=== PATIENT | female | born 1985 | race Native Hawaiian/Other Pacific Islander ===

== ENCOUNTER 2018-04-23 07:12 | Inpatient (IN) | payer OTHER ==
[2018-04-23] VITALS (22 sets, daily range): BP systolic 100–141; BP diastolic 55–88
[~2018-04-23] VITALS: Ht 154.9 cm; Wt 63.1 kg
[2018-04-23] MEDS ORDERED: PRENTAB9 PO (08:47)
[2018-04-23] MEDS ORDERED: B6 N1TAB PO (08:47)
[2018-04-23] MEDS ORDERED: UNIS25TA3 PO (08:47)
[2018-04-23 10:04] LABS: HEMATOCRIT 34.1 % (36.0-47.0); HEMOGLOBIN 11.8 g/dl (12.0-15.5); MEAN CORPUSCULAR HEMOGLOBIN 32.5 pg (27.0-33.0); MEAN CORPUSCULAR HGB CONC 34.6 g/dl (32.0-36.5); MEAN CORPUSCULAR VOLUME 93.9 fl (80.0-96.0); PLATELET COUNT, AUTOMATED 168 10^3/uL (150-450); RED BLOOD COUNT 3.63 10^6/uL (4.00-5.40); WHITE BLOOD COUNT 6.4 10^3/uL (4.0-10.0)
[2018-04-23] MEDS ORDERED: miSOPROStol 25 MCG 1/4 TAB (S0191) As Ordered ONE (10:11)
[2018-04-23] MEDS ORDERED: miSOPROStol 25 MCG 1/4 TAB (S0191) PV ONE (10:15)
[2018-04-23] MEDS ORDERED: BUTORPHANOL 2 MG/ML INJ (J0595) IV PRN (10:15)
--- NOTE | 2018-04-23 10:24 | HPEPDOC ---
Obstetrical History & Physical General Date of Admission Apr 23, 2018 at 07:12 History of Present Illness Abena is a 32yo with SIUP at 41w1d by lmp c/w 13wk u/s presenting today f or scheduled IOL for LTG. Occasional ctx. No LOF. No vaginal bleeding. Good movement. No f/c/n/v. Chief Complaint: Induction of labor Care Care: Good Care Dating Final EDC: Apr 15, 2018 Final EDC by: LMP, 1st trimester (US) Antepartum Course Diagnos(e)s Elevated risk for down syndrome on quad screen but normal [id number] and ultrasound. Elevated 1hr glucola with normal 3hr GTT. 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 Past Medical History Medical History Benign PMhx Surgical History: Dilatation and Curettage Family History Significant Family History: No pertinent family hx Social History Marital Status: Family situation: Spouse/partner home Psychosocial History: No pertinent psych hx * Smoker: non-smoker Alcohol: Denies Drugs: denies Imunizations Tdap status: current Influenza Status: current Allergies Coded Allergies: No Known Allergies (Unverified , 04/23/18) Medications Scheduled Multivitamins/ ( 27-0.8 mg) 1 Tab Tab, 1 TAB PO DAILY Scheduled PRN (Unisom) 25 Mg Tab, 1 TAB PO QPM PRN for INSOMNIA Miscellaneous Medications Pyridoxine HCl (B6 Natural) 100 Mg Tab, 100 MG PO Physical Examination Physical Examination GENERAL: Alert and oriented times three. ABDOMEN: Gravid and non-tender to touch. FETUS: Is vertex (VTX) by sterile vaginal examination (SVE) EXTREMITIES: No edema BLE Vital Signs/I&O Vital Signs Date Time Temp Pulse Resp B/P (MAP) Pulse Ox O2 Delivery O2 Flow Rate FiO2 04/23/18 07:41 98.0 74 16 121/71 (88) Laboratory Data 24H LABS Laboratory Tests 2 04/23/18 07:33: Serology Scanned Report Hepatitis B Testing 04/23/18 09:45: CBC/BMP Pertinent Laboratoy Data Blood Type: B+ RBC Antibody Screen: Negative HIV: Negative Hepatitis B: Negative Hepatitis C: Unknown Rapid Plasma Reagin: Nonreactive Rubella: Immune Varicella: Immune Chlamydia/Gonorrhea: Negative Group B Streptococcus: Negative Quad Screen Test: Positive (but negative [id number]) Glucose Tolerance Test: 149 (73/168/125/98) Anatomy Ultrasound Ultrasound Date: Nov 28, 2017 Placenta Location: Anterior Normal Anatomy: Yes Placenta Previa: No Steroid Therapy Steroid Therapy: No Vaginal Examination Dilation: 1cm Effacement: 70% Station: -2 Cervical Consistency: Soft Cervical Position: Anterior Presentation: Cephalic presentation Assessment Heart Rate (FHR): 150 Variability: Moderate Accelerations: Positive Decelerations: None Tocometer Contractions: Yes Frequency: irregular Strength: palpated as mild Assessment/Plan Assessment Abena is a 32yo with SIUP at 41w1d by lmp c/w 13wk u/s presenting today for scheduled IOL for LTG. GBS negative. Vitals wnl, benign exam. Cat I FHRT, irreg mild ctx. Cephalic by SCE. Lobo cervical balloon placed with 40cc NS, uncomplicated. Also 25mcg cytotec placed vaginally. course significant for elevated risk for down syndrome on quad screen but normal [id number] and ultrasound. Elevated 1hr glucola with normal 3hr GTT. Plan Admit and orient. 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 Diet: clear liquids Group B Streptococcus (GBS) negative Labs and intravenous (IV) per unit protocol. Counseled on lobo bulb, cytotec, pitocin, AROM and induction of labor (IOL). Lactated Ringers (LR): Bolus 1000 mL, then at 125 mL/hr. Anticipate normal spontaneous delivery () stadol 2mg IV q4hr prn pain until active labor Candidate for epidural in active labor if desired MD Fab Pillai Katrina D MD Apr 23, 2018 10:03
[2018-04-23] MEDS: miSOPROStol 50 MCG 1/2 TAB (S0191) PO SCH ×3 (15:03→22:15)
--- NOTE | 2018-04-23 19:28 | IPNPDOC ---
Text Note Date of Service The patient was seen on 04/23/18. NOTE Intrapartum Note Pt doing well, only feels mild cramping. Reveles bulb fell out around 1500, she received one dose of PV cytotec followed by a single PO dose of cytotec around 1530. Vitals wnl, afebrile Cat I FHRT, +accels, -decels, mod brandon [place]: ctx q2min SCE: /-2, AROM performed with clear fluid noted, well tolerated Will plan to begin pitocin now She would like an epidural later when she is more uncomfortable Will continue to closely observe Safe to proceed Dr. Betsy Sanon MD VS,Luis Fernando, I+O VS, Luis Fernando, I+O Laboratory Tests 04/23/18 09:45 Red Blood Count 3.63 L, Mean Corpuscular Volume 93.9, Mean Corpuscular Hemoglobin 32.5, Mean Corpuscular Hemoglobin Concent 34.6, Red Cell Distribution Width 12.2 Vital Signs Date Time Temp Pulse Resp B/P (MAP) Pulse Ox O2 Delivery O2 Flow Rate FiO2 04/23/18 17:35 97.8 80 16 118/71 (87) Betsy Sanon MD Apr 23, 2018 19:28
[2018-04-23] MEDS ORDERED: OXYTOCIN DRIP 30 UNITS in APPROPRIATE DILUENT 1 EA IV SCH (19:30)
[2018-04-23] MEDS ORDERED: OXYTOCIN 30 UNITS IN 0.9% NaCl 500ML IV BAG (J2590) As Ordered ONE (19:40)
[2018-04-23] MEDS ORDERED: FENTANYL 2MCG/ML ROPIVACAINE 0.2% IN 0.9% NACL 100ML IVBAG As Ordered ONE (21:35)
[2018-04-23] MEDS ORDERED: ePHEDrine SULFATE 25 MG/5 ML(5MG/ML) SYRINGE IV PRN (22:00)
[2018-04-23] MEDS ORDERED: LACTATED RINGER'S 1000 ML IV PRN (22:00)
[2018-04-23] MEDS ORDERED: EPIDURAL COMMENT XX SCH (22:00)
[2018-04-23] MEDS ORDERED: diphenhydrAMINE INJ 50MG/ML VIAL (J1200) IV PRN (22:00)
[2018-04-23] MEDS: FENTANYL/ROPIVACAINE/NACL BAG 100 ML EPIDURAL SCH (22:00)
[2018-04-23] MEDS ORDERED: ONDANSETRON 4MG/2ML VIAL (J2405) IV PRN (22:00)
[2018-04-23] MEDS ORDERED: EPIDURAL/PCA KEYS XX PRN (22:00)
[2018-04-23] MEDS ORDERED: NALOXONE INJ 0.4 MG/1 ML VIAL (J2310) IV PRN (22:00)
[2018-04-23] MEDS ORDERED: REFRIGERATOR IV KEYS XX PRN (22:00)
--- NOTE | 2018-04-23 23:46 | IPNPDOC ---
Text Note Date of Service The patient was seen on 04/23/18. NOTE Intrapartum Note Patient is doing well, comfortable with epidural. Pitocin at 2mu. Vitals wnl, afebrile Cat I FHRT [place]: ctx q3-5min SCE: /-2, clear fluid Will continue to titrate up on pitocin to get patient into active labor Will continue to closely monitor Safe to proceed Dr. Betsy Sanon MD VS,Luis Fernando, I+O VS, Luis Fernando, I+O Laboratory Tests 04/23/18 09:45 Red Blood Count 3.63 L, Mean Corpuscular Volume 93.9, Mean Corpuscular Hemoglobin 32.5, Mean Corpuscular Hemoglobin Concent 34.6, Red Cell Distribution Width 12.2 Vital Signs Date Time Temp Pulse Resp B/P (MAP) Pulse Ox O2 Delivery O2 Flow Rate FiO2 04/23/18 21:15 64 16 134/70 (91) 04/23/18 19:15 98.3 Betsy Sanon MD Apr 23, 2018 23:46
[2018-04-24] VITALS (27 sets, daily range): BP systolic 98–132; BP diastolic 50–69
[2018-04-24] MEDS: miSOPROStol 50 MCG 1/2 TAB (S0191) PO SCH ×2 (02:15→06:15)
[2018-04-24] MEDS ORDERED: LR 1,000 ML IV SCH ×2 (07:15→12:30)
--- NOTE | 2018-04-24 08:05 | IPNPDOC ---
Text Note Date of Service The patient was seen on 04/24/18. NOTE Intrapartum Note Patient not yet feeling constant strong urge to push, epidural working well. I was called by RN at 0600 with SCE of C/C/0 and plan was to labor down for an isabel r. Vitals wnl, afebrile Cat I FHRT with mod brandon, +accels, some early decels occasionally [place]: ctx q2-3min Discussed with Dr. Thomas at change of shift plan to begin pushing. He is currently in the OR and will be done with his first case soon, RN instructed to wait to start pushing until Dr. Thomas is available soon. Safe to proceed Dr. Betsy Sanon MD VS,Luis Fernando, I+O VS, Luis Fernando, I+O Laboratory Tests 04/23/18 09:45 Red Blood Count 3.63 L, Mean Corpuscular Volume 93.9, Mean Corpuscular Hemoglobin 32.5, Mean Corpuscular Hemoglobin Concent 34.6, Red Cell Distribution Width 12.2 Vital Signs Date Time Temp Pulse Resp B/P (MAP) Pulse Ox O2 Delivery O2 Flow Rate FiO2 04/24/18 04:58 82 16 100/56 (71) 04/23/18 22:30 98.0 I&O- Last 24 Hours up to 6 AM 04/24/18 05:59 Output Total 450 ml Balance -450 ml Betsy Sanon MD Apr 24, 2018 08:04
[2018-04-24] MEDS: FENTANYL/ROPIVACAINE/NACL BAG 100 ML EPIDURAL SCH (08:20)
--- NOTE | 2018-04-24 09:28 | NUR ---
0830 am reviewed progress adequate contractions category 1 strip ,pelvic exam swollen vulva, station -3 ot moulded not well applied now 3 hours fully and pushing 2 hours if not significant change primary cs indicated REVIEWED PLAN OF CARE WITH AND
[2018-04-24] MEDS ORDERED: AZITHROMYCIN INJ 500MG VIAL (J0456) As Ordered ONE (10:21)
[2018-04-24] MEDS ORDERED: ceFAZolin 2 GM/D5W 50 ML IV BAG (J0690 PER 500MG) As Ordered ONE (10:21)
--- NOTE | 2018-04-24 10:33 | NUR ---
reviewed progress no change with adequate pushing and 12 munits Pitocin now tachycardia 170 bpm reviewed risk benefit cs include bleeding infection uterine atony with remote hysterectomy,remote blood transfusion remote nicu admission for baby remote laceration to vital organs or fetus expressed understanding signed consent neonatology notified
[2018-04-24] MEDS ORDERED: BICITRA 30ML SOLN UDC PO ONE (11:00)
[2018-04-24] MEDS ORDERED: ACETAMINOPHEN 650 MG SUPP PR ONE (11:00)
[2018-04-24] MEDS ORDERED: BUPIVACAINE HCL 0.25% 10 ML VIAL SC ONE (11:00)
[2018-04-24] MEDS ORDERED: KETOROLAC 60 MG/2 ML VIAL (J1885) As Ordered ONE (11:19)
[2018-04-24] MEDS ORDERED: PHENYLephrine HCL 500 MCG/5 ML (100MCG/ML) SYRINGE (J2370) As Ordered ONE (11:19)
[2018-04-24] MEDS ORDERED: MORPHINE PRES-FREE INJ 10 MG/10 ML VIAL (J2274) As Ordered ONE (11:19)
[2018-04-24] MEDS ORDERED: ONDANSETRON 4MG/2ML VIAL (J2405) As Ordered ONE (11:19)
[2018-04-24] MEDS ORDERED: dexameTHASONE 4 MG/ML 1ML VIAL (J1100) As Ordered ONE ×2 (11:19→11:21)
[2018-04-24] MEDS ORDERED: MEPERIDINE 50 MG/ML 1ML VIAL (J2175) As Ordered ONE (11:19)
[2018-04-24] MEDS ORDERED: OXYTOCIN INJ 10 UNITS/ML VIAL (J2590) As Ordered ONE ×2 (11:19→11:32)
[2018-04-24] MEDS ORDERED: METOCLOPRAMIDE INJ 10MG/2ML VIAL (J2765) As Ordered ONE (11:21)
[2018-04-24] MEDS ORDERED: AZITHROMYCIN INJ 500 MG, VIAL MATE ADAPTER 1 EACH in D5W 250 ML IV ONE (11:45)
[2018-04-24] MEDS ORDERED: ONDANSETRON 4MG/2ML VIAL (J2405) IV PRN (11:50)
[2018-04-24] MEDS ORDERED: NALBUPHINE HCL 10 MG/ML AMP (J2300) IV PRN ×2 (11:50→12:30)
[2018-04-24] MEDS ORDERED: METOCLOPRAMIDE INJ 10MG/2ML VIAL (J2765) IV PRN (11:50)
[2018-04-24] MEDS ORDERED: NALOXONE INJ 0.4 MG/1 ML VIAL (J2310) IV PRN ×2 (11:50)
[2018-04-24] MEDS ORDERED: diphenhydrAMINE INJ 50MG/ML VIAL (J1200) IV PRN (11:50)
[2018-04-24 12:04] LABS: CORD GAS HCO3 V 21.9 MEQ/L; CORD GAS PCO2 V 43.1 mmHg; CORD GAS PH V 7.324 UNITS; CORD GAS PO2 V 25.9 mmHg; CORD GAS SBC V 20.4 MEQ/L; CORD GAS TCO2 V 23.2 MEQ/L
[2018-04-24] MEDS ORDERED: OXYTOCIN 30 UNITS IN 0.9% NaCl 500ML IV BAG (J2590) As Ordered ONE (12:30)
[2018-04-24] MEDS ORDERED: fentaNYL 100 MCG/2 ML INJECTION (J3010) IV PRN (12:30)
[2018-04-24] MEDS ORDERED: OXYTOCIN DRIP 30 UNITS in APPROPRIATE DILUENT 1 EA IV SCH ×2 (13:00→13:05)
[2018-04-24] MEDS ORDERED: MEASLES,MUMPS,RUBELLA VACCINE INJ (MMR-II) (90707) SC SCH (13:00)
[2018-04-24] MEDS ORDERED: DOCUSATE SODIUM 100 MG CAP PO PRN (13:00)
[2018-04-24] MEDS ORDERED: MOM 30ML SUSPENSION UDC PO PRN (13:00)
[2018-04-24] MEDS ORDERED: OXYTOCIN INJ 10 UNITS/ML VIAL (J2590) IV ONE ×2 (13:00→13:45)
[2018-04-24] MEDS ORDERED: RHOGAM 300 MCG (1500 IU) INJ (J2790) IM SCH (13:00)
[2018-04-24] MEDS ORDERED: ANUSOL HC CREAM 30GM TOP PRN (13:00)
[2018-04-24] MEDS: KETOROLAC 30 MG/ML VIAL (J1885) IV SCH ×2 (17:57→23:43)
--- NOTE | 2018-04-24 20:24 | IPN ---
DATE: 04/24/2018 This patient and requested circumcision of their male , after discussing risks and benefits of the circumcision, medical and nonmedical indications, penile block and aftercare, expressed understanding of penile block, aftercare and bleeding, signed the consent form, 20 minutes, all questions were answered. We await the clearance by the passport application examiner.
[2018-04-24] MEDS ORDERED: NS 800 ML IV ONE (23:15)
[2018-04-24] MEDS: NS 1,000 ML IV SCH (23:44)
[2018-04-25 02:31] VITALS: BP 95/54
[2018-04-25] MEDS: KETOROLAC 30 MG/ML VIAL (J1885) IV SCH (05:57)
[2018-04-25 06:17] VITALS: BP 94/57
[2018-04-25] MEDS: PERCOCET 5MG/325MG TAB PO PRN ×3 (06:56→22:11)
[2018-04-25] MEDS: NS 1,000 ML IV SCH (07:15)
[2018-04-25] MEDS: PRENATAL VITAMINS CHEWABLE TABLET PO SCH (08:00)
[2018-04-25 08:01] LABS: HEMATOCRIT 21.6 % (36.0-47.0); MEAN CORPUSCULAR HEMOGLOBIN 32.9 pg (27.0-33.0); MEAN CORPUSCULAR HGB CONC 33.8 g/dl (32.0-36.5); MEAN CORPUSCULAR VOLUME 97.3 fl (80.0-96.0); PLATELET COUNT, AUTOMATED 127 10^3/uL (150-450); RED BLOOD COUNT 2.22 10^6/uL (4.00-5.40); WHITE BLOOD COUNT 15.1 10^3/uL (4.0-10.0)
[2018-04-25 08:04] LABS: HEMOGLOBIN 7.3 g/dl (12.0-15.5)
--- NOTE | 2018-04-25 08:32 | IPNPDOC ---
Progress Note Date of Service: Apr 25, 2018 Progress Note SUBJECT: P1 s/p LTCS for arrest of descent at 41 2/7 weeks. , POD#1. She has been ambulating, catheter is in place. Had some decreased UOP but picked up with NS. Tolerating regular diet. Breast feeding without issue. Reports lochia is [like a normal period]. Patient is ambulating well. [Reports some cramping with . Denies any pain. Voiding and stooling without difficulty]. OBJECTIVE: VITAL SIGNS: Within normal limits, afebrile. Alert and oriented times three. Breath sounds without wheeze or stridor. Heart rate: Regular rate and rhythm. Abdomen: Fundus firm at U-2. Soft, appropriately tender. ASSESSMENT: POD#1 s/p LTCS for arrest of descent, well. Vitals within normal limits, afebrile, hemodynamically stable with no evidence of infection. PLAN: 1. Motrin/Percocet for pain. 2. Encourage breast feeding and ambulation. 3. d/c Reveles, heplock IVF. 4. Routine postop care. VS, I&O, 24H, Fishbone Vital Signs/I&O Vital Signs Date Time Temp Pulse Resp B/P (MAP) Pulse Ox O2 Delivery O2 Flow Rate FiO2 04/25/18 07:40 16 04/25/18 06:17 97.4 90 94/57 (69) 97 I&O- Last 24 Hours up to 6 AM 04/25/18 06:00 Intake Total 517 ml Output Total 1515 ml Balance -998 ml Laboratory Data 24H LABS Laboratory Tests 2 04/24/18 11:55: Cord Arterial Blood pH , Cord Arterial Blood PCO2 , Cord Arterial Blood PO2 , Cord Arterial Blood HCO3 , Cord Arterial Blood Total CO2 , Cord Arterial Blood Base Excess , Cord Arterial Base Excess (Standard , Cord Arterial Bld Oxygen Saturation 04/24/18 11:56: Cord Venous Blood pH 7.324, Cord Venous Blood PCO2 43.1, Cord Venous Blood PO2 25.9, Cord Venous Blood HCO3 21.9, Cord Venous Blood Total CO2 23.2, Cord Venous Base Excess (Actual) -4.0, Cord Venous Base Excess (Standard) 20.4, Cord Venous Blood Oxygen Saturation 61.0 04/25/18 07:36: Nucleated Red Blood Cells % (auto) 0.0 CBC/BMP Laboratory Tests 04/25/18 07:36 Red Blood Count 2.22 L, Mean Corpuscular Volume 97.3 H, Mean Corpuscular Hemoglobin 32.9, Mean Corpuscular Hemoglobin Concent 33.8, Red Cell Distribution Width 12.3 DINO MINER MD Apr 25, 2018 08:32
[2018-04-25 11:01] VITALS: BP 99/57
[2018-04-25] MEDS: IBUPROFEN 800 MG TAB PO SCH ×2 (14:08→22:12)
[2018-04-25 14:52] VITALS: BP 101/58
[2018-04-25 18:10] VITALS: BP 121/58
[2018-04-26 02:30] VITALS: BP 117/63
[2018-04-26 05:51] VITALS: BP 102/59
[2018-04-26] MEDS: IBUPROFEN 800 MG TAB PO SCH ×3 (06:10→22:44)
[2018-04-26] MEDS: PERCOCET 5MG/325MG TAB PO PRN ×3 (07:46→20:05)
[2018-04-26] MEDS: PRENATAL VITAMINS CHEWABLE TABLET PO SCH (07:46)
[2018-04-26 08:00] VITALS: BP 118/64
[2018-04-26] MEDS: IRON POLYSAC (NIFEREX) 150 MG CAP PO SCH (09:00)
--- NOTE | 2018-04-26 09:06 | IPNPDOC ---
Progress Note Date of Service: Apr 26, 2018 Progress Note SUBJECT: P1 s/p LTCS for arrest of descent at 41 2/7 weeks. , POD#2. She has been ambulating, catheter is in place. Tolerating regular diet. Breast feeding and pumping without issue. Reports lochia is [like a normal period]. Patient is ambulating well. [Reports some cramping with . Denies any pain. Voiding without difficulty]. OBJECTIVE: VITAL SIGNS: Within normal limits, afebrile. Alert and oriented times three. Breath sounds without wheeze or stridor. Heart rate: Regular rate and rhythm. Abdomen: Fundus firm at U-2. Soft, appropriately tender. ASSESSMENT: POD#1 s/p LTCS for arrest of descent, well. Vitals within normal limits, afebrile, hemodynamically stable with no evidence of infection. PLAN: 1. Motrin/Percocet for pain. 2. Encourage breast feeding and ambulation. 3. d/c Revelesdustin IVF. 4. Routine postop care. 5. Repeat CBC and start iron supplement. VS, I&O, 24H, Fishbone Vital Signs/I&O Vital Signs Date Time Temp Pulse Resp B/P (MAP) Pulse Ox O2 Delivery O2 Flow Rate FiO2 04/26/18 07:46 18 04/26/18 05:51 97.2 91 102/59 (73) 99 I&O- Last 24 Hours up to 6 AM 04/26/18 06:00 Intake Total 1000 ml Balance 1000 ml DINO MINER MD Apr 26, 2018 09:06
[2018-04-26 10:26] LABS: BASO % 0.2 % (0.0-1.0); EOS # 0.1 10^3/uL (0.0-0.50); EOS % 0.6 % (0.0-3.0); HEMATOCRIT 17.9 % (36.0-47.0); LYMPH # 1.1 10^3/uL (1.5-4.5); LYMPH % 8.6 % (24.0-44.0); MEAN CORPUSCULAR HEMOGLOBIN 33.5 pg (27.0-33.0); MEAN CORPUSCULAR HGB CONC 34.6 g/dl (32.0-36.5); MEAN CORPUSCULAR VOLUME 96.8 fl (80.0-96.0); MONO # 0.8 10^3/uL (0.0-0.8); MONO % 6.6 % (0.0-5.0); NEUTROPHILS # 10.2 10^3/uL (1.8-7.7); NEUTROPHILS % 82.8 % (36.0-66.0); PLATELET COUNT, AUTOMATED 120 10^3/uL (150-450); RED BLOOD COUNT 1.85 10^6/uL (4.00-5.40); WHITE BLOOD COUNT 12.3 10^3/uL (4.0-10.0)
[2018-04-26 10:38] LABS: HEMOGLOBIN 6.2 g/dl (12.0-15.5)
--- NOTE | 2018-04-26 11:05 | IPNPDOC ---
Progress Note Date of Service: Apr 26, 2018 Progress Note SPoke with patient about h/h. She maintains no sig lochia. Abdominal pain is releived with oral meds. No s/o anemia. No CP/SOB. She is ambulating well. No DELGADO. I told her that at this level of anemia, I would normally recommend transfusion but given no sx, we can wait to see what another h/h is this evening. She has started iron replacement. If stable this evening, and continues to be asymptomatic can observe closely. VS, I&O, 24H, Fishbone Vital Signs/I&O Vital Signs Date Time Temp Pulse Resp B/P (MAP) Pulse Ox O2 Delivery O2 Flow Rate FiO2 04/26/18 08:17 18 04/26/18 05:51 97.2 91 102/59 (73) 99 I&O- Last 24 Hours up to 6 AM 04/26/18 06:00 Intake Total 1000 ml Balance 1000 ml Laboratory Data 24H LABS Laboratory Tests 2 04/26/18 09:14: Immature Granulocyte % (Auto) 1.2, White Blood Count 12.3H, Red Blood Count 1.85L, Hemoglobin 6.2*L, Hematocrit 17.9L, Mean Corpuscular Volume 96.8H, Mean Corpuscular Hemoglobin 33.5H, Mean Corpuscular Hemoglobin Concent 34.6, Red Cell Distribution Width 12.4, Platelet Count 120L, Neutrophils (%) (Auto) 82.8H, Lymphocytes (%) (Auto) 8.6L, Monocytes (%) (Auto) 6.6H, Eosinophils (%) (Auto) 0.6, Basophils (%) (Auto) 0.2, Neutrophils # (Auto) 10.2H, Lymphocytes # (Auto) 1.1L, Monocytes # (Auto) 0.8, Eosinophils # (Auto) 0.1, Basophils # (Auto) 0.0, Nucleated Red Blood Cells % (auto) 0.0 CBC/BMP Laboratory Tests 04/26/18 09:14 Red Blood Count 1.85 L, Mean Corpuscular Volume 96.8 H, Mean Corpuscular Hemoglobin 33.5 H, Mean Corpuscular Hemoglobin Concent 34.6, Red Cell Distribution Width 12.4, Neutrophils (%) (Auto) 82.8 H, Lymphocytes (%) (Auto) 8.6 L, Monocytes (%) (Auto) 6.6 H, Eosinophils (%) (Auto) 0.6, Basophils (%) (Auto) 0.2, Neutrophils # (Auto) 10.2 H, Lymphocytes # (Auto) 1.1 L, Monocytes # (Auto) 0.8, Eosinophils # (Auto) 0.1, Basophils # (Auto) 0.0 DINO MINER MD Apr 26, 2018 11:05
[2018-04-26 18:00] VITALS: BP 90/54
[2018-04-26 18:40] LABS: BASO % 0.1 % (0.0-1.0); EOS # 0.1 10^3/uL (0.0-0.50); EOS % 0.6 % (0.0-3.0); HEMATOCRIT 17.4 % (36.0-47.0); LYMPH # 1.3 10^3/uL (1.5-4.5); LYMPH % 11.2 % (24.0-44.0); MEAN CORPUSCULAR HEMOGLOBIN 33.5 pg (27.0-33.0); MEAN CORPUSCULAR HGB CONC 34.5 g/dl (32.0-36.5); MEAN CORPUSCULAR VOLUME 97.2 fl (80.0-96.0); MONO # 0.8 10^3/uL (0.0-0.8); MONO % 7.2 % (0.0-5.0); NEUTROPHILS # 9.1 10^3/uL (1.8-7.7); NEUTROPHILS % 80.1 % (36.0-66.0); PLATELET COUNT, AUTOMATED 139 10^3/uL (150-450); RED BLOOD COUNT 1.79 10^6/uL (4.00-5.40); WHITE BLOOD COUNT 11.3 10^3/uL (4.0-10.0)
--- NOTE | 2018-04-26 19:34 | IPNPDOC ---
Text Note Date of Service The patient was seen on 04/26/18. NOTE Called by nursing staff as Ms. Mike's H/H is 6.0/17.4. Ms. Mike is POD#1 s/p PLTCS for arrest fo descent. H/H has trended down after delivery to the above. Her vital signs remain stable; she is not tachycardic or hypotensive. She is ambulating and voiding spontaneously. She denies any dizziness or weakness, however she reports feeling tired. Give her H/H and symptoms, I recommended transfusion of 2U PRBCs. I discussed all risks and benefits (improved and faster healing, decreased risk cardiovascular adverse, etc) of transfusion. We specifically discussed risks of luz elena HIV and/or hepatitis, transfusion reactions, fever, and even . However these risks are very low, and the benefits of transfusion certainly outweigh the risks in this circumstance. Ms. Mike agrees and desires to proceed with transfusion. 2U PRBCs ordered. Tylenol beforehand. All patient questions answered. Willie Graves, VS,Luis Fernando, I+O VS, Luis Fernando, I+O Laboratory Tests 04/26/18 09:14 Red Blood Count 1.85 L, Mean Corpuscular Volume 96.8 H, Mean Corpuscular Hemoglobin 33.5 H, Mean Corpuscular Hemoglobin Concent 34.6, Red Cell Distribution Width 12.4, Neutrophils (%) (Auto) 82.8 H, Lymphocytes (%) (Auto) 8.6 L, Monocytes (%) (Auto) 6.6 H, Eosinophils (%) (Auto) 0.6, Basophils (%) (Auto) 0.2, Neutrophils # (Auto) 10.2 H, Lymphocytes # (Auto) 1.1 L, Monocytes # (Auto) 0.8, Eosinophils # (Auto) 0.1, Basophils # (Auto) 0.0 04/26/18 18:03 Red Blood Count 1.79 L, Mean Corpuscular Volume 97.2 H, Mean Corpuscular Hemoglobin 33.5 H, Mean Corpuscular Hemoglobin Concent 34.5, Red Cell Dist ribution Width 12.4, Neutrophils (%) (Auto) 80.1 H, Lymphocytes (%) (Auto) 11.2 L, Monocytes (%) (Auto) 7.2 H, Eosinophils (%) (Auto) 0.6, Basophils (%) (Auto) 0.1, Neutrophils # (Auto) 9.1 H, Lymphocytes # (Auto) 1.3 L, Monocytes # (Auto) 0.8, Eosinophils # (Auto) 0.1, Basophils # (Auto) 0.0 Vital Signs Date Time Temp Pulse Resp B/P (MAP) Pulse Ox O2 Delivery O2 Flow Rate FiO2 04/26/18 18:00 98.1 85 18 90/54 (51) 98 I&O- Last 24 Hours up to 6 AM0 04/26/18 06:00 Intake Total 1000 ml Balance 1000 ml WILLIE GRAVES DO Apr 26, 2018 19:34
[2018-04-26] MEDS ORDERED: ACETAMINOPHEN TAB 650MG DOSE (2X325MG) PO ONE (19:45)
[2018-04-27] MEDS: PERCOCET 5MG/325MG TAB PO PRN ×2 (03:41→12:33)
[2018-04-27 06:08] VITALS: BP 116/66
[2018-04-27] MEDS: IBUPROFEN 800 MG TAB PO SCH ×2 (06:12→13:59)
--- NOTE | 2018-04-27 06:19 | IPNPDOC ---
Progress Note Date of Service: Apr 27, 2018 Progress Note 32 yo G1 now P1 POD#2 s/p PLTCS for arrest of descent currently recovering on the [place]. Her H/H trended down after delivery to 6/17.4. She received 2U PRBCs overnight. Vital signs have remained stable. No issues with the transfusion. Went to examine the patient but she was in the NICU with her . Vital signs reviewed and normal. Post transfusion CBC is currently pending. Should it be stable and Ms. Mike continues to feel well, she would be a candidate for discharge to home or to [facility] today. Willie Graves, DO VS, I&O, 24H, [facility] Vital Signs/I&O Vital Signs Date Time Temp Pulse Resp B/P (MAP) Pulse Ox O2 Delivery O2 Flow Rate FiO2 04/27/18 06:08 97.7 86 16 116/66 (83) 04/27/18 03:41 100 I&O- Last 24 Hours up to 6 AM 04/27/18 06:00 Intake Total 649 ml Balance 649 ml Laboratory Data 24H LABS Laboratory Tests 2 04/26/18 09:14: Immature Granulocyte % (Auto) 1.2, White Blood Count 12.3H, Red Blood Count 1.85L, Hemoglobin 6.2*L, Hematocrit 17.9L, Mean Corpuscular Volume 96.8H, Mean Corpuscular Hemoglobin 33.5H, Mean Corpuscular Hemoglobin Concent 34.6, Red Cell Distribution Width 12.4, Platelet Count 120L, Neutrophils (%) (Auto) 82.8H, Lymphocytes (%) (Auto) 8.6L, Monocytes (%) (Auto) 6.6H, Eosinophils (%) (Auto) 0.6, Basophils (%) (Auto) 0.2, Neutrophils # (Auto) 10.2H, Lymphocytes # (Auto) 1.1L, Monocytes # (Auto) 0.8, Eosinophils # (Auto) 0.1, Basophils # (Auto) 0.0, Nucleated Red Blood Cells % (auto) 0.0 04/26/18 18:03: Immature Granulocyte % (Auto) 0.8, White Blood Count 11.3H, Red Blood Count 1.79L, Hemoglobin 6.0*L, Hematocrit 17.4L, Mean Corpuscular Volume 97.2H, Mean Corpuscular Hemoglobin 33.5H, Mean Corpuscular Hemoglobin Concent 34.5, Red Cell Distribution Width 12.4, Platelet Count 139L, Neutrophils (%) (Auto) 80.1H, Lymphocytes (%) (Auto) 11.2L, Monocytes (%) (Auto) 7.2H, Eosinophils (%) (Auto) 0.6, Basophils (%) (Auto) 0.1, Neutrophils # (Auto) 9.1H, Lymphocytes # (Auto) 1.3L, Monocytes # (Auto) 0.8, Eosinophils # (Auto) 0.1, Basophils # (Auto) 0.0, Nucleated Red Blood Cells % (auto) 0.0 CBC/BMP Laboratory Tests 04/26/18 09:14 Red Blood Count 1.85 L, Mean Corpuscular Volume 96.8 H, Mean Corpuscular Hemoglobin 33.5 H, Mean Corpuscular Hemoglobin Concent 34.6, Red Cell D istribution Width 12.4, Neutrophils (%) (Auto) 82.8 H, Lymphocytes (%) (Auto) 8.6 L, Monocytes (%) (Auto) 6.6 H, Eosinophils (%) (Auto) 0.6, Basophils (%) (Auto) 0.2, Neutrophils # (Auto) 10.2 H, Lymphocytes # (Auto) 1.1 L, Monocytes # (Auto) 0.8, Eosinophils # (Auto) 0.1, Basophils # (Auto) 0.0 04/26/18 18:03 Red Blood Count 1.79 L, Mean Corpuscular Volume 97.2 H, Mean Corpuscular Hemoglobin 33.5 H, Mean Corpuscular Hemoglobin Concent 34.5, Red Cell Distribution Width 12.4, Neutrophils (%) (Auto) 80.1 H, Lymphocytes (%) (Auto) 11.2 L, Monocytes (%) (Auto) 7.2 H, Eosinophils (%) (Auto) 0.6, Basophils (%) (Auto) 0.1, Neutrophils # (Auto) 9.1 H, Lymphocytes # (Auto) 1.3 L, Monocytes # (Auto) 0.8, Eosinophils # (Auto) 0.1, Basophils # (Auto) 0.0 WILLIE GRAVES DO Apr 27, 2018 06:19
[2018-04-27 07:02] LABS: HEMATOCRIT 24.1 % (36.0-47.0); MEAN CORPUSCULAR HEMOGLOBIN 31.5 pg (27.0-33.0); MEAN CORPUSCULAR VOLUME 92.7 fl (80.0-96.0); PLATELET COUNT, AUTOMATED 138 10^3/uL (150-450); WHITE BLOOD COUNT 8.6 10^3/uL (4.0-10.0)
[2018-04-27 07:07] LABS: HEMOGLOBIN 8.2 g/dl (12.0-15.5)
[2018-04-27] MEDS: IRON POLYSAC (NIFEREX) 150 MG CAP PO SCH (08:12)
[2018-04-27] MEDS: PRENATAL VITAMINS CHEWABLE TABLET PO SCH (08:13)
[2018-04-27 10:00] VITALS: BP 127/77
--- NOTE | 2018-04-27 12:07 | DS.PDOC ---
Discharge Summary General Date of Admission Apr 23, 2018 at 07:12 Date of Discharge 04/27/18 Discharge Summary PROCEDURES PERFORMED DURING STAY: LTCS for arrest of descent. Blood transfusion ADMITTING DIAGNOSES: 1. Term . DISCHARGE DIAGNOSES: 1. Same. 2. severe anemia, s/p 2 Units PRBC transfusion COMPLICATIONS/CHIEF COMPLAINT: Induction. HISTORY OF PRESENT ILLNESS: Patient admitted for post-dates induction c/b arrest of descent. HOSPITAL COURSE: for arrest disorder. She had severe anemia which responded well to blood transfusion. No complications. DISCHARGE MEDICATIONS: Please see below. ALLERGIES: Please see below. PHYSICAL EXAMINATION ON DISCHARGE: VITAL SIGNS: Stable. GENERAL: NAD, pleasant HEENT: WNL NECK: WNL CARDIOVASCULAR EXAMINATION: RRR RESPIRATORY EXAMINATION: No accessory muscles or wheeze ABDOMINAL EXAMINATION: Benign, appropriately tender. EXTREMITIES: Neg Luis's, mild edema SKIN: Inc: C/D/I NEUROLOGICAL EXAMINATION: Normal PSYCHIATRIC EXAMINATION: Congruent LABORATORY DATA: Please see below. IMAGING: None PROGNOSIS: Good ACTIVITY: [As tolerated]. DIET: Reg DISCHARGE PLAN: Incision check in [address] Thomas DISPOSITION: Home. DISCHARGE INSTRUCTIONS: 1. Take iron, pain meds. f/u as scheduled. . ITEMS TO FOLLOWUP ON ON OUTPATIENT: 1. None DISCHARGE CONDITION: [Stable]. TIME SPENT ON DISCHARGE: Greater than 45 minutes. Vital Signs/I&Os Vital Signs Date Time Temp Pulse Resp B/P (MAP) Pulse Ox O2 Delivery O2 Flow Rate FiO2 04/27/18 10:00 97.7 97 18 127/77 (94) 100 I&O- Last 24 Hours up to 6 AM 04/27/18 06:00 Intake Total 649 ml Balance 649 ml Laboratory Data Labs 24H Laboratory Tests 2 04/26/18 18:03: Immature Granulocyte % (Auto) 0.8, White Blood Count 11.3H, Red Blood Count 1.79L, Hemoglobin 6.0*L, Hematocrit 17.4L, Mean Corpuscular Volume 97.2H, Mean Corpuscular Hemoglobin 33.5H, Mean Corpuscular Hemoglobin Concent 34.5, Red Cell Distribution Width 12.4, Platelet Count 139L, Neutrophils (%) (Auto) 80.1H, Lymphocytes (%) (Auto) 11.2L, Monocytes (%) (Auto) 7.2H, Eosinophils (%) (Auto) 0.6, Basophils (%) (Auto) 0.1, Neutrophils # (Auto) 9.1H, Lymphocytes # (Auto) 1.3L, Monocytes # (Auto) 0.8, Eosinophils # (Auto) 0.1, Basophils # (Auto) 0.0, Nucleated Red Blood Cells % (auto) 0.0 04/27/18 06:42: Nucleated Red Blood Cells % (auto) 0.2H CBC/BMP Laboratory Tests 04/26/18 18:03 Red Blood Count 1.79 L, Mean Corpuscular Volume 97.2 H, Mean Corpuscular Hemoglobin 33.5 H, Mean Corpuscular Hemoglobin Concent 34.5, Red Cell Distribution Width 12.4, Neutrophils (%) (Auto) 80.1 H, Lymphocytes (%) (Auto) 11.2 L, Monocytes (%) (Auto) 7.2 H, Eosinophils (%) (Auto) 0.6, Basophils (%) (Auto) 0.1, Neutrophils # (Auto) 9.1 H, Lymphocytes # (Auto) 1.3 L, Monocytes # (Auto) 0.8, Eosinophils # (Auto) 0.1, Basophils # (Auto) 0.0 04/27/18 06:42 Red Blood Count 2.60 L, Mean Corpuscular Volume 92.7, Mean Corpuscular Hemoglobin 31.5, Mean Corpuscular Hemoglobin Concent 34.0, Red Cell Distribution Width 13.9 Discharge Medications Scheduled Multivitamins/ ( 27-0.8 mg) 1 Tab Tab, 1 TAB PO DAILY, (Reported) Scheduled PRN (Unisom) 25 Mg Tab, 1 TAB PO QPM PRN for INSOMNIA, (Reported) Miscellaneous Medications Pyridoxine HCl (B6 Natural) 100 Mg Tab, 100 MG PO, (Reported) Allergies Coded Allergies: No Known Allergies (Unverified , 04/23/18) DINO MINER MD Apr 27, 2018 12:07
[2018-04-27] MEDS ORDERED: COLA100C5 PO (12:50)
[2018-04-27] MEDS ORDERED: OXYC1TAB23 PO (12:50)
[2018-04-27] MEDS ORDERED: IBUP-1114 PO (12:50)
--- NOTE | 2018-05-14 12:21 | RO ---
DATE OF PROCEDURE: 04/24/2018 PREPROCEDURE DIAGNOSES: Arrest of descent, anemia, tachycardia. POSTPROCEDURE DIAGNOSES: tachycardia, failure to descend, arrest of descent, anemia. OPERATION PROPOSED: Primary section. OPERATION PERFORMED: Primary section. ANESTHESIA: Spinal plus local anesthetic for intraperitoneal procedures. ESTIMATED BLOOD LOSS: 500 mL. SURGEON: Ravin Thomas MD CORRECTIONAL COUNSELOR: Jana Montoya CNM, who helped with extraction, retraction and visualization. DESCRIPTION OF PROCEDURE: After adequate time-out, prepped and draped in the supine position, Reveles catheter in the bladder draining clear urine. Sequentials on board, appropriate antibiotic therapy, a low Pfannenstiel incision was made two fingerbreadths above the symphysis pubis, passing through abdominal layers. Opening the peritoneal cavity, we noticed a thinned lower uterine segment. Low transverse incision into the lower segment of the uterus. We delivered a live male infant, which really never entered into the pelvis completely, weighing 3888 grams, 8 pounds 9 ounces, scores were 4 and 9 and 9. Venous pH was 7.32, base excess -4.0. Placenta was manually removed, three vessels in the cord, membranes and tissues intact. We swept out the uterus. No evidence of trailing membranes or debris or tissue, and the uterus contracted well down under Pitocin. The lower segment was oversewn in the usual fashion in two layers, imbricating the second layer and then reperitonealization was performed. With instrument and pad count correct, both ovaries and tubes appeared to be normal, the abdomen was then closed, running stitch for the peritoneum, same for the fascia, interrupted for subcutaneous, with irrigation and Dexon to the skin with Marcaine 0.25% 10 mL for incisional comfort. [place] and Telfa were applied. The patient was sent to recovery in good condition.
== END 2018-04-27 15:50 | disposition home or self-care (01) | DRG 773 ==
LOC: M LDI 07:12 → M OBS 15:07 → M LDI 15:13 → M OBS 04-24 14:12
PROVIDERS: ADMIT Obstetrics & Gynecology; ATTEND Obstetrics & Gynecology
PROC: 3E0P7GC Introduction of Other Therapeutic Substance into Female Reproductive, Via Natural or Artificial Opening (ICD-10-PCS; 2018-04-23)
PROC: 10D00Z1 Extraction of Products of Conception, Low, Open Approach (ICD-10-PCS; principal; 2018-04-24 11:08)
PROC: 30233N1 Transfusion of Nonautologous Red Blood Cells into Peripheral Vein, Percutaneous Approach (ICD-10-PCS; 2018-04-26)
DX: O48.0 Post-term pregnancy (principal); Z3A.41 41 weeks gestation of pregnancy; O64.0XX0 Obstructed labor due to incomplete rotation of fetal head, not applicable or unspecified; Z37.0 Single live birth; O99.03 Anemia complicating the puerperium; D64.9 Anemia, unspecified; O76 Abnormality in fetal heart rate and rhythm complicating labor and delivery

== ENCOUNTER → 2018-05-30 | Outpatient (CLI) | payer OTHER ==
[~2018-05-30] MED LIST: B6 N1TAB PO; COLA100C5 PO; IBUP-1114 PO; OXYC1TAB23 PO; PRENTAB9 PO; UNIS25TA3 PO
--- NOTE | 2018-05-31 11:18 | REP ---
Focused bilateral breast sonography: History: Low grade fever, chills, myalgia. Bilateral breast inflammation and induration and tenderness. Rule out abscess. Sonographic findings: Focused bilateral breast sonography is performed in this lactating woman. Dilated ducts are noted bilaterally. There is a 7 mm cyst at 4 o'clock on the right. Heterogeneous fibroglandular background echotexture is seen. There is hyperemic and somewhat hyperechoic inflamed fat in the 3 o'clock position in the right breast consistent with mastitis. The left breast is scanned and similar findings are observed. There is no evidence of abscess on either side. Impression: Heterogeneous hyperechoic parenchymal changes consistent with inflammation, mastitis. There is no evidence of abscess on either side. Electronically Signed by Abel Arana MD 05/31/2018 12:10 P
== END ==
LOC: M RAD 16:15
PROVIDERS: ATTEND Family Medicine
DX: N61.0 Mastitis without abscess (principal)

== ENCOUNTER → 2018-11-30 | Outpatient (CLI) | payer OTHER ==
[~2018-11-30] MED LIST changes: -B6 N1TAB PO; +VITA100T14 PO
--- NOTE | 2018-11-30 13:23 | REP ---
Chest x-ray: Two views. History: Positive PPD test. . Comparison study: No comparison chest x-ray. . Findings: The lungs are well inflated and free of infiltrate. The pleural angles are sharp. The heart size is normal. Pulmonary vasculature is not increased. No significant bony abnormality is seen. Spina bifida occulta is noted incidentally at the T1 level. Impression: Negative chest x-ray. Electronically Signed by Abel Arana MD 11/30/2018 01:14 P
== END ==
LOC: M WUC 11:06
PROVIDERS: ATTEND Family Medicine Adult Medicine
DX: Z11.1 Encounter for screening for respiratory tuberculosis (principal)

== ENCOUNTER 2019-03-10 11:53 | Emergency (ER) | payer OTHER ==
[~2019-03-10] VITALS: Ht 154.9 cm; Wt 50.0 kg
[2019-03-10 11:54] VITALS: BP 125/67
[2019-03-10] MEDS ORDERED: IBUPROFEN 400 MG TAB PO ONE (12:45)
== END 2019-03-10 13:01 | disposition home or self-care (01) ==
LOC: M ED 11:53
DX: S16.1XXA Strain of muscle, fascia and tendon at neck level, initial encounter (principal); V43.52XA Car driver injured in collision with other type car in traffic accident, initial encounter; Y92.410 Unspecified street and highway as the place of occurrence of the external cause